=== PATIENT | male | born 1960 | race African-American/Black ===

== ENCOUNTER 2022-12-04 15:10 | Emergency (ER) | payer OTHER ==
[~2022-12-04] VITALS: Ht 182.9 cm; Wt 82.0 kg
[2022-12-04 15:14] VITALS: BP 0/0
[2022-12-04] MEDS ORDERED: GLUCAGON,HUMAN RECOMBINANT 1MG/VIAL IV NR ×2 (15:52→15:59)
[2022-12-04] MEDS ORDERED: SUCCINYLCHOLINE CHLORIDE 200MG/10ML IV NR (16:30)
[2022-12-04] MEDS ORDERED: ETOMIDATE 2MG/ML 10ML VIAL IV NR (16:30)
[2022-12-04 17:06] LABS: BG FRACTION INSPIRED OXYGEN 100; BG PCO2 102.4 mmHg (35.0-45.0); BG PH 7.634 (7.350-7.450); BG PO2 < 30.3 mmHg (75.0-100.0); BG SAMPLE SITE LEFT BRACHIAL; BG TOTAL HEMOGLOBIN < 4.5 g/dL (12.0-18.0); BG VENT MODE VENT - AC
== END 2022-12-04 17:24 ==
LOC: ER 15:10
DX: I46.9 Cardiac arrest, cause unspecified (principal); I10 Essential (primary) hypertension
CPT/HCPCS: 31500; 36600; 71045; 82375; 82962; 99291; J1610; Z7610; 94002